=== PATIENT | male | born 1960 | race American Indian/Alaskan Native ===

== ENCOUNTER 2017-01-24 18:07 | Inpatient (IN) | payer OTHER ==
[2017-01-24] MEDS ORDERED: ATROVENT IH ONE (18:38)
[2017-01-24] MEDS ORDERED: PROVENTIL IH ONE (18:38)
[2017-01-24] MEDS ORDERED: MAGNESIUM SULFATE 2GM/50ML 2 GM/50 ML BAG IV ONE (18:38)
[2017-01-24] MEDS ORDERED: CARDENE 50 MG in NACL 0.9% 250ML 230 ML IV SCH (19:00)
[2017-01-24 19:07] LABS: Basophils % (Auto) 0.9 % (0.0-1.8); Eosinophils % (Auto) 12.7 % (0.0-4.3); Hematocrit 41.9 % (35.5-45.6); Hemoglobin 13.9 gm/dl (11.8-15.2); Mean Corpuscular HGB Conc 33 % (32-34); Mean Corpuscular Hemoglobin 33 pg (28-32); Mean Corpuscular Volume 98 fl (84-94); Platelet Count 289 K/mm3 (140-440); Red Blood Count 4.26 M/mm3 (3.65-5.03); Red Cell Distribution Width 12.7 % (13.2-15.2); White Blood Count 10.9 K/mm3 (4.5-11.0)
[2017-01-24 19:18] LABS: INR 0.95 (0.87-1.13)
[2017-01-24 19:19] LABS: Partial Thromboplastin Time 26.3 Sec. (24.2-36.6)
--- NOTE | 2017-01-24 19:23 | Emergency Department Report ---
ED Shortness of Breath HPI - General Chief Complaint: Dyspnea/Respdistress Stated Complaint: REBECCA Time Seen by Provider: 01/24/17 18:22 Source: EMS Mode of arrival: Stretcher Limitations: No Limitations - History of Present Illness Initial Comments: 56 year old male with no known past medical history presents to the hospital with shortness of breath since yesterday. Symptoms worsened today. Patient reports receiving a flu shot yesterday. Patient presents significantly hypertensive and to his knowledge she has no medical problems. She has not seen a primary care physician in greater than 10 years and has not has blood pressure checked in greater than 10 years. Does not smoke cigarettes. Denies a family history of heart disease, denies orthopnea, PND, calf tenderness, edema , cough, or fever. Albuterol nebulized treatments initiated in route. Patient also reports he has been taking Goody powders - Related Data Home Medications Medication Instructions Recorded Confirmed Last Taken No Known Home Medications [No 01/24/17 01/24/17 Unknown Reported Home Medications] Allergies Allergy/AdvReac Type Severity Reaction Status Date / Time No Known Allergies Allergy Unverified 03/14/13 08:53 ED Review of Systems ROS: Stated complaint: REBECCA Other details as noted in HPI Comment: All other systems reviewed and negative Other: Constitutional: No fevers chills Eyes: No eye pain visual changes ENT: No ear pain or throat pain Neck: Denies pain Respiratory: Denies cough Cardiovascular: Denies chest pain, palpitations, syncope GI: Denies abdominal pain, nausea, vomiting, diarrhea, Musculoskeletal: Denies back pain, joint swelling Skin: Denies rash, lesions, erythema Neurologic: Denies headache, numbness, weakness Psychiatric: Denies suicidal ideation, hallucinations ED Past Medical Hx - Past Medical History Previous Medical History?: No - Surgical History Past Surgical History?: No - Social History Smoking Status: Never Smoker Substance Use Type: None - Medications Home Medications: Home Medications Medication Instructions Recorded Confirmed Last Taken Type No Known Home Medications [No 01/24/17 01/24/17 Unknown History Reported Home Medications] ED Physical Exam - General Limitations: No Limitations - Other Other exam information: General: No limitations, patient is alert in no acute distress Head exam: Atraumatic, normocephalic Eyes exam: Normal appearance ENT: Moist mucous membrane, normal oropharynx Neck exam: Normal inspection, full range of motion, no meningismus nontender Respiratory exam: Mild tachypnea,ecchymoses, bilateral expiratory wheezing. Recently completed an albuterol treatment Cardiovascular: Tachycardic regular rhythm Abdomen: Soft, nondistended, and nontender, with normal bowel sounds, no rebound, or guarding Extremity: Full range of motion normal inspection no deformity, no calf tenderness or edema. Significant clubbing to the finger nails Back: Normal Inspection, full range of motion, no tenderness Neurologic: Alert, oriented x3, cranial nerves intact, no motor or sensory deficit Psychiatric: normal affect, normal mood Skin: Warm, dry, intact ED Course Vital Signs 01/24/17 01/24/17 01/24/17 18:10 18:13 18:20 Pulse Rate 100 H 112 H Respiratory 14 25 H Rate Blood Pressure 253/171 269/164 O2 Sat by Pulse 98 95 96 Oximetry 01/24/17 01/24/17 01/24/17 18:30 18:45 19:00 Pulse Rate 112 H 105 H 102 H Respiratory 21 17 21 Rate Blood Pressure 264/153 228/146 241/152 O2 Sat by Pulse 97 97 98 Oximetry 01/24/17 01/24/17 01/24/17 19:06 19:15 19:30 Pulse Rate 99 H 102 H Respiratory 22 22 22 Rate Blood Pressure 254/150 210/131 O2 Sat by Pulse 97 96 97 Oximetry 01/24/17 19:45 Pulse Rate 101 H Respiratory 21 Rate Blood Pressure 190/114 O2 Sat by Pulse 94 Oximetry ED Medical Decision Making - Lab Data Result diagrams: 01/24/17 18:55 01/24/17 18:55 Lab Results 01/24/17 01/24/17 01/24/17 Range/Units 18:55 18:55 18:55 WBC 10.9 (4.5-11.0) K/mm3 RBC 4.26 (3.65-5.03) M/mm3 Hgb 13.9 (11.8-15.2) gm/dl Hct 41.9 (35.5-45.6) % MCV 98 H (84-94) fl MCH 33 H (28-32) pg MCHC 33 (32-34) % RDW 12.7 L (13.2-15.2) % Plt Count 289 (140-440) K/mm3 Lymph % (Auto) 20.8 (13.4-35.0) % [place] % (Auto) 5.2 (0.0-7.3) % Eos % (Auto) 12.7 H (0.0-4.3) % Baso % (Auto) 0.9 (0.0-1.8) % Lymph # 2.3 (1.2-5.4) K/mm3 [place] # 0.6 (0.0-0.8) K/mm3 Eos # 1.4 H (0.0-0.4) K/mm3 Baso # 0.1 (0.0-0.1) K/mm3 Seg Neutrophils % 60.4 (40.0-70.0) % Seg Neutrophils # 6.6 (1.8-7.7) K/mm3 PT 13.2 (12.2-14.9) Sec. INR 0.95 (0.87-1.13) APTT 26.3 (24.2-36.6) Sec. Sodium 142 (137-145) mmol/L Potassium 3.7 (3.6-5.0) mmol/L Chloride 104.9 (98-107) mmol/L Carbon Dioxide 24 (22-30) mmol/L Anion Gap 17 mmol/L BUN 24 H (9-20) mg/dL Creatinine 1.7 H (0.8-1.5) mg/dL Estimated GFR 51 ml/min BUN/Creatinine Ratio 14 % Glucose 128 H (75-100) mg/dL Calcium 8.9 (8.4-10.2) mg/dL Total Bilirubin 0.20 (0.1-1.2) mg/dL AST 15 (5-40) units/L ALT 9 (7-56) units/L Alkaline Phosphatase 43 (35-129) units/L Total Creatine Kinase (55-170) units/L CK-MB (CK-2) (0.0-4.0) ng/mL CK-MB (CK-2) Rel Index (0-4) Troponin T < 0.010 (0.00-0.029) ng/mL NT-Pro-B Natriuret Pep (0-900) pg/mL Total Protein 7.6 (6.3-8.2) g/dL Albumin 4.0 (3.9-5) g/dL Albumin/Globulin Ratio 1.1 % Triglycerides (2-149) mg/dL Cholesterol (50-199) mg/dL LDL Cholesterol Direct (50-130) mg/dL HDL Cholesterol (40-59) mg/dL Cholesterol/HDL Ratio % 01/24/17 01/24/17 Range/Units 18:55 18:55 WBC (4.5-11.0) K/mm3 RBC (3.65-5.03) M/mm3 Hgb (11.8-15.2) gm/dl Hct (35.5-45.6) % MCV (84-94) fl MCH (28-32) pg MCHC (32-34) % RDW (13.2-15.2) % Plt Count (140-440) K/mm3 Lymph % (Auto) (13.4-35.0) % [place] % (Auto) (0.0-7.3) % Eos % (Auto) (0.0-4.3) % Baso % (Auto) (0.0-1.8) % Lymph # (1.2-5.4) K/mm3 [place] # (0.0-0.8) K/mm3 Eos # (0.0-0.4) K/mm3 Baso # (0.0-0.1) K/mm3 Seg Neutrophils % (40.0-70.0) % Seg Neutrophils # (1.8-7.7) K/mm3 PT (12.2-14.9) Sec. INR (0.87-1.13) APTT (24.2-36.6) Sec. Sodium (137-145) mmol/L Potassium (3.6-5.0) mmol/L Chloride (98-107) mmol/L Carbon Dioxide (22-30) mmol/L Anion Gap mmol/L BUN (9-20) mg/dL Creatinine (0.8-1.5) mg/dL Estimated GFR ml/min BUN/Creatinine Ratio % Glucose (75-100) mg/dL Calcium (8.4-10.2) mg/dL Total Bilirubin (0.1-1.2) mg/dL AST (5-40) units/L ALT (7-56) units/L Alkaline Phosphatase (35-129) units/L Total Creatine Kinase 195 H (55-170) units/L CK-MB (CK-2) 5.1 H (0.0-4.0) ng/mL CK-MB (CK-2) Rel Index 2.6 (0-4) Troponin T (0.00-0.029) ng/mL NT-Pro-B Natriuret Pep 888.5 (0-900) pg/mL Total Protein (6.3-8.2) g/dL Albumin (3.9-5) g/dL Albumin/Globulin Ratio % Triglycerides 260 H (2-149) mg/dL Cholesterol 243 H (50-199) mg/dL LDL Cholesterol Direct 153 H (50-130) mg/dL HDL Cholesterol 38 L (40-59) mg/dL Cholesterol/HDL Ratio 6.39 % - EKG Data -: EKG Interpreted by Me (sinus tach 109 lateral T inversions no ST elevation MD ) - EKG Data When compared to previous EKG there are: previous EKG unavailable - Radiology Data Radiology results: image reviewed (chest x-ray: No acute findings) - Medical Decision Making Patient is treated with Solu-Medrol, magnesium, and nebulized treatments for wheezing. Cardene drip initiated for hypertension. No MD at this time but abnl ekg We'll admit to the ED for further treatment - Differential Diagnosis bronchitis, asthma, COPD, CHF, hypertensive emergency Critical Care Time: No Critical care attestation.: If time is entered above; I have spent that time in minutes in the direct care of this critically ill patient, excluding procedure time. ED Disposition Clinical Impression: Wheezing, Hypertensive emergency, Renal insufficiency, Hyperlipidemia, Clubbing of nails Disposition: OP ADMIT IP TO THIS HOSP Is pt being admited?: Yes Does the pt Need Aspirin: Yes Condition: Stable Time of Disposition: 19:58 (hospitalist)
[2017-01-24 19:30] LABS: Creatine Kinase MB 5.1 ng/mL (0.0-4.0)
[2017-01-24 19:33] LABS: Alanine Aminotransferase 9 units/L (7-56); Albumin/Globulin Ratio 1.1 %; Alkaline Phosphatase 43 units/L (35-129); Anion Gap 17 mmol/L; BUN/Creatinine Ratio 14; Blood Urea Nitrogen 24 mg/dL (9-20); Calcium 8.9 mg/dL (8.4-10.2); Carbon Dioxide 24 mmol/L (22-30); Chloride 104.9 mmol/L (98-107); Glucose 128 mg/dL (75-100); Potassium 3.7 mmol/L (3.6-5.0); Sodium 142 mmol/L (137-145); Total Protein 7.6 g/dL (6.3-8.2)
[2017-01-24] MEDS ORDERED: ASPIRIN PO ONE (20:00)
--- NOTE | 2017-01-24 22:00 | History and Physical Report ---
History of Present Illness Date of examination: 01/24/17 Date of admission: 01/24/17 20:00 History of present illness: 56-year-old man with no medical problems comes emergency room because he developed shortness of breath that started yesterday. He complains of a cough but unable to produce any phlegm. He feels very weak, is very diaphoretic when he gets shortness of breath at home Review Of Systems: Constitutional: no weight loss Ears, eyes, nose, mouth and throat: no nasal congestion, no nasal discharge, no sinus pressure, blurry vision, diplopia Neck: No neck pain or rigidity. Cardiovascular: chest pain, orthopnea, palpitations Respiratory: No shortness of breath, cough Gastrointestinal: abdominal pain, hematochezia Genitourinary : no dysuria, frequency , hematuria Musculoskeletal: no muscle ache Integumentary: no rash, no pruritis Neurological: no parathesias, focal weakness Endocrine: no cold or heat intolerance, no polyuria or polydipsia Hematologic/Lymphatic: no easy bruising, no easy bleeding, no gland swelling Allergic/Immunologic: no urticaria, no angioedema. PAST SURGICAL HISTORY: None FAMILY HISTORY: None SOCIAL HISTORY: None Medications and Allergies Allergies Allergy/AdvReac Type Severity Reaction Status Date / Time No Known Allergies Allergy Unverified 03/14/13 08:53 Home Medications Medication Instructions Recorded Confirmed Last Taken Type No Known Home Medications [No 01/24/17 01/24/17 Unknown History Reported Home Medications] Active Meds: Active Medications Nicardipine HCl 50 mg/ Sodium (Chloride) 250 mls @ 25 mls/hr IV TITR YONATHAN; 5 MG/ HR PRN Reason: Protocol Last Titration: 01/24/17 21:15 Dose: 3 mg/hr, 15 mls/hr Exam - Physical Exam Narrative exam: Gen. appearance: Patient lying in bed in no acute distress HEENT: Normocephalic/atraumatic, pupils equal round reactive to light, extra alkaline movement intact, no scleral icterus, no JVD or thyromegaly or nodule, neck is supple, mucous membrane moist, no erythema or exudate Heart: S1-S2, regular rate and rhythm Lungs: Clear to auscultation bilateral breathing comfortable Abdomen: Positive bowel sounds, nontender, nondistended, no organomegaly Extremities: No edema, cyanosis, clubbing Neuro:: Oriented 3 , cranial nerves II-12 intact, speech, motor intact Skin: No rash, nodules, warm dry - Constitutional Vitals: Temp Pulse Resp BP Pulse Ox 126 H 13 159/88 96 01/24/17 21:45 01/24/17 21:45 01/24/17 21:45 01/24/17 21:45 Results - Labs CBC & Chem 7: 01/25/17 02:44 01/26/17 10:22 - Imaging and Cardiology EKG: image reviewed Chest x-ray: image reviewed Assessment and Plan Assessment HypertensiVE urgency, malignant Shortness of breath probably secondary to hypertension uncontrolled Kidney disease, most likely chronic Plan Admit to medicine Switch Cardene drip to labetalol drip to control heart rate Obtain CAT scan of the chest, check cardiac enzymes, d-dimer Gentle IV fluids, DT prophylaxis Consult critical care
--- NOTE | 2017-01-24 22:26 | History and Physical Report ---
History of Present Illness Date of admission: 01/24/17 20:00 Medications and Allergies Allergies Allergy/AdvReac Type Severity Reaction Status Date / Time No Known Allergies Allergy Unverified 03/14/13 08:53 Home Medications Medication Instructions Recorded Confirmed Last Taken Type No Known Home Medications [No 01/24/17 01/24/17 Unknown History Reported Home Medications] Active Meds: Active Medications Enoxaparin Sodium (Lovenox) 30 mg SUB-Q QDAY YONATHAN Nicardipine HCl 50 mg/ Sodium (Chloride) 250 mls @ 25 mls/hr IV TITR YONATHAN; 5 MG/ HR PRN Reason: Protocol Last Titration: 01/24/17 21:45 Dose: 2.5 mg/hr, 12.5 mls/hr Exam - Constitutional Vitals: Temp Pulse Resp BP Pulse Ox 120 H 22 144/72 96 01/24/17 22:00 01/24/17 22:00 01/24/17 22:00 01/24/17 22:00 Results - Labs CBC & Chem 7: 01/24/17 18:55 01/24/17 18:55
--- NOTE | 2017-01-24 23:00 | Cat Scan Report ---
FINAL REPORT EXAM: CT CHEST WO CON HISTORY: sob TECHNIQUE: Noncontrast serial axial images through the chest with coronal and sagittal reconstruction PRIORS: None. FINDINGS: The study is limited by lack of intravenous contrast. There is motion artifact. No focal consolidations are seen in the lungs and there are no pleural effusions. There is mild atelectasis in the posterior aspect of the right lung base. There is a bleb in the medial aspect of the superior segment of the right lower lobe. No abnormal mass or adenopathy is identified. The heart measures 12 centimeters in length. Asymmetric atrophy of the right kidney is noted. There double J ureteral stent on the right which is incompletely evaluated this study. There are degenerative changes in the spine. IMPRESSION: 1. Mild atelectasis in the right lung base. 2. No focal infiltrate or pleural effusion is seen.
[2017-01-24] MEDS ORDERED: ASPIRIN ONE (23:04)
[2017-01-24] MEDS ORDERED: TYLENOL PO PRN (23:06)
[2017-01-24] MEDS ORDERED: ZOFRAN IV PRN (23:06)
[2017-01-24] MEDS ORDERED: DULCOLAX PR PRN (23:06)
[2017-01-24] MEDS ORDERED: NACL 0.45% 1000 ML 1,000 ML IV SCH (23:45)
[2017-01-24] MEDS: NORMODYNE 200 MG in D5W 160 ML IV SCH (23:45)
--- NOTE | 2017-01-24 23:51 | Cat Scan Report ---
FINAL REPORT EXAM: CT ABDOMEN PELVIS WO CON HISTORY: sob TECHNIQUE: Serial axial images through the abdomen and pelvis with coronal and sagittal reconstruction. PRIORS: CT abdomen pelvis from 09/30/2012 FINDINGS: There is respiratory motion artifact noted in the lung bases. There is mild atelectasis in dependent portion of the right lung base. No focal hepatic lesion is identified. Cholelithiasis is noted. Pancreas appears normal. Spleen appears normal. Adrenal glands appear normal. Left kidney appears normal. There atrophy in the right kidney. There is a double-J ureteral stent on the right side. Bladder is decompressed. The bladder wall appears thickened. No free fluid. Appendix appears normal. No gross bowel abnormality is identified. There are degenerative changes in the spine. IMPRESSION: 1. Cholelithiasis. 2. Double-J ureteral stent is noted on the right side. 3. The wall the bladder appears slightly thickened. This may be exaggerated by nondistention. Possibility of cystitis is not excluded.
[2017-01-25 00:09] LABS: Creatine Kinase MB 5.5 ng/mL (0.0-4.0)
[2017-01-25 00:10] LABS: Creatine Kinase 165 units/L (55-170)
[2017-01-25 03:08] LABS: Hematocrit 38.9 % (35.5-45.6); Hemoglobin 13.5 gm/dl (11.8-15.2); Mean Corpuscular HGB Conc 35 % (32-34); Mean Corpuscular Hemoglobin 34 pg (28-32); Mean Corpuscular Volume 98 fl (84-94); Platelet Count 259 K/mm3 (140-440); Red Blood Count 3.97 M/mm3 (3.65-5.03); Red Cell Distribution Width 13.2 % (13.2-15.2); White Blood Count 9.2 K/mm3 (4.5-11.0)
[2017-01-25] MEDS: NORMODYNE 200 MG in D5W 160 ML IV SCH (03:25)
[2017-01-25 03:26] LABS: Calcium 9.1 mg/dL (8.4-10.2); Chloride 102.1 mmol/L (98-107); Creatine Kinase MB 7.5 ng/mL (0.0-4.0); Potassium 4.3 mmol/L (3.6-5.0)
[2017-01-25 03:28] LABS: Creatine Kinase 152 units/L (55-170)
[2017-01-25 06:48] LABS: Anisocytosis Few; Basophils % (Manual) 0 % (0.0-1.8); Blastocytes % (Manual) 0 %; Eosinophils % (Manual) 0 % (0.0-4.3)
[2017-01-25 06:49] LABS: Diff Status Complete
--- NOTE | 2017-01-25 08:01 | XRay Report ---
AP CHEST: HISTORY: chest pain, shortness of breath AP view of the chest demonstrates a normal mediastinal and cardiac contour with clear lungs and normal bony and soft tissue structures. IMPRESSION: No acute cardiopulmonary process.
[2017-01-25] MEDS ORDERED: APRESOLINE IV STA (09:47)
--- NOTE | 2017-01-25 09:47 | Consultation ---
History of Present Illness Consult date: 01/25/17 Requesting physician: HERBER SAUL Reason for consult: other (Hypertensive Emergency) History of present illness: PULMONARY / CCM CONSULT NOTE (Full dictation # [id number]) Please see dictated notes for full details Medications and Allergies Allergies Allergy/AdvReac Type Severity Reaction Status Date / Time No Known Allergies Allergy Unverified 03/14/13 08:53 Home Medications Medication Instructions Recorded Confirmed Last Taken Type No Known Home Medications [No 01/24/17 01/24/17 Unknown History Reported Home Medications] Active Meds: Active Medications Acetaminophen (Tylenol) 650 mg PO Q4H PRN PRN Reason: Pain MILD(1-3)/Fever >100.5/AVALOS Bisacodyl (Dulcolax) 10 mg CA QDAY PRN PRN Reason: Constipation unrelieved by MOM Enoxaparin Sodium (Lovenox) 30 mg SUB-Q QDAY YONATHAN Nicardipine HCl 50 mg/ Sodium (Chloride) 250 mls @ 25 mls/hr IV TITR YONATHAN; 5 MG/ HR PRN Reason: Protocol Last Titration: 01/24/17 21:45 Dose: 2.5 mg/hr, 12.5 mls/hr Sodium Chloride (Nacl 0.45% 1000 Ml) 1,000 mls @ 75 mls/hr IV DIRECT YONATHAN Last Admin: 01/24/17 23:45 Dose: 75 mls/hr Labetalol HCl 200 mg/ Dextrose 200 mls @ 120 mls/hr IV TITR YONATHAN; 2 MG/MIN PRN Reason: Protocol Last Admin: 01/25/17 03:25 Dose: 1 mg/min, 60 mls/hr Magnesium Hydroxide (Milk Of Magnesia) 30 ml PO Q4H PRN PRN Reason: Constipation Ondansetron HCl (Zofran) 4 mg IV Q8H PRN PRN Reason: N/V unrelieved by Reglan Physical Examination Vital signs: Vital Signs Pulse Ox 98 01/24/17 18:10 Results - Laboratory Findings CBC and BMP: 01/25/17 02:44 01/25/17 02:44 PT/INR, D-dimer PT 13.2 Sec. (12.2-14.9) 01/24/17 18:55 INR 0.95 (0.87-1.13) 01/24/17 18:55 D-Dimer 167.89 ng/mlDDU (0-234) 01/24/17 18:55 Abnormal lab findings: Abnormal Labs 01/24/17 01/25/17 01/25/17 23:35 02:44 02:44 MCV 98 H MCH 34 H MCHC 35 H Seg Neuts % (Manual) 86.0 H Lymphocytes % (Manual) 7.0 L Seg Neutrophils # Man 7.9 H Lymphocytes # (Manual) 0.6 L BUN Creatinine Glucose CK-MB (CK-2) 5.5 H 7.5 H CK-MB (CK-2) Rel Index 4.9 H 01/25/17 02:44 MCV MCH MCHC Seg Neuts % (Manual) Lymphocytes % (Manual) Seg Neutrophils # Man Lymphocytes # (Manual) BUN 26 H Creatinine 1.7 H Glucose 283 H CK-MB (CK-2) CK-MB (CK-2) Rel Index
[2017-01-25] MEDS ORDERED: LOVENOX SUB-Q SCH (10:00)
[2017-01-25] MEDS ORDERED: APRESOLINE ONE (10:04)
[2017-01-25] MEDS: CATAPRES PO SCH ×3 (10:14→18:30)
[2017-01-25] MEDS ORDERED: APRESOLINE IV SCH (11:00)
--- NOTE | 2017-01-25 16:08 | Cat Scan Report ---
CT scan without contrast: History shoulder surgery weakness, CVA. Findings: Ventricles are normal in size and midline in location. Very faint area of low attenuation measuring 4 mm in diameter the right basal ganglia. Ventricles are midline in location. No extra-axial fluid collection. Normal brainstem and cerebellum. No hemorrhage. Normal sinuses and mastoid air cells. Impression: Faint area of low attenuation right basal ganglia may be related to acute ischemia. If clinically indicated MRI scan may be advised. No evidence of hemorrhage.
[2017-01-25] MEDS: APRESOLINE IV SCH ×3 (16:49→22:49)
--- NOTE | 2017-01-25 17:17 | Progress Note ---
Assessment and Plan Assessment and plan: Hypertensive emergency. Initial BP [id number]. Patient was started on Labetalol drip which is now off. Start Norvasc and Clonidine oral since BP improved. Cardiology consulted. Shortness of breath due to hypertensive urgency , improving Acute kidney injury due to ATN. Creatinine 1.7 today. Will give iv fluids and repeat BMP in am. Avoid nephrotox Medical noncompliance. Patient has not been to a Doctor in more than 10 yrs Dyslipidemia with elevated LDL and trig. Start Zocor 20mg po daily DVT prophylaxis with Lovenox. Full code status History Interval history: shortness of breath, no fever Hospitalist Physical - Physical exam Narrative exam: Gen Appearance: Not in acute distress, HEENT: normocephalic, atraumatic Neck: supple, no JVD Lungs: Clear to auscultation, bilaterally, no rales, no wheezing Heart: S1 and S2 regular, no murmurs, rubs or gallop Abdomen: Soft , non tender, non distended, normal bowel sounds Extremity: No edema, No clubbing or cyanosis Neuro : Awake,alert, oriented x 3, moves all extremities - Constitutional Vitals: Temp Pulse Resp BP Pulse Ox 97.8 F 89 20 133/76 98 01/25/17 00:00 01/25/17 16:49 01/25/17 16:00 01/25/17 16:49 01/25/17 16:00 Results - Labs CBC & Chem 7: 01/25/17 02:44 01/26/17 10:22 Labs: Laboratory Last Values WBC 9.2 K/mm3 (4.5-11.0) 01/25/17 02:44 RBC 3.97 M/mm3 (3.65-5.03) 01/25/17 02:44 Hgb 13.5 gm/dl (11.8-15.2) 01/25/17 02:44 Hct 38.9 % (35.5-45.6) 01/25/17 02:44 MCV 98 fl (84-94) H 01/25/17 02:44 MCH 34 pg (28-32) H 01/25/17 02:44 MCHC 35 % (32-34) H 01/25/17 02:44 RDW 13.2 % (13.2-15.2) 01/25/17 02:44 Plt Count 259 K/mm3 (140-440) 01/25/17 02:44 Lymph % (Auto) 20.8 % (13.4-35.0) 01/24/17 18:55 [place] % (Auto) 5.2 % (0.0-7.3) 01/24/17 18:55 Eos % (Auto) 12.7 % (0.0-4.3) H 01/24/17 18:55 Baso % (Auto) 0.9 % (0.0-1.8) 01/24/17 18:55 Lymph # 2.3 K/mm3 (1.2-5.4) 01/24/17 18:55 [place] # 0.6 K/mm3 (0.0-0.8) 01/24/17 18:55 Eos # 1.4 K/mm3 (0.0-0.4) H 01/24/17 18:55 Baso # 0.1 K/mm3 (0.0-0.1) 01/24/17 18:55 Add Manual Diff Complete 01/25/17 02:44 Total Counted 100 01/25/17 02:44 Seg Neutrophils % Art Therapy Certified Supervisor 01/25/17 02:44 Seg Neuts % (Manual) 86.0 % (40.0-70.0) H 01/25/17 02:44 Band Neutrophils % 4.0 % 01/25/17 02:44 Lymphocytes % (Manual) 7.0 % (13.4-35.0) L 01/25/17 02:44 Reactive Lymphs % (Man) 0 % 01/25/17 02:44 Monocytes % (Manual) 3.0 % (0.0-7.3) 01/25/17 02:44 Eosinophils % (Manual) 0 % (0.0-4.3) 01/25/17 02:44 Basophils % (Manual) 0 % (0.0-1.8) 01/25/17 02:44 Metamyelocytes % 0 % 01/25/17 02:44 Myelocytes % 0 % 01/25/17 02:44 Promyelocytes % 0 % 01/25/17 02:44 Blast Cells % 0 % 01/25/17 02:44 Nucleated RBC % Not Reportable 01/25/17 02:44 Seg Neutrophils # 6.6 K/mm3 (1.8-7.7) 01/24/17 18:55 Seg Neutrophils # Man 7.9 K/mm3 (1.8-7.7) H 01/25/17 02:44 Band Neutrophils # 0.4 K/mm3 01/25/17 02:44 Lymphocytes # (Manual) 0.6 K/mm3 (1.2-5.4) L 01/25/17 02:44 Abs React Lymphs (Man) 0.0 K/mm3 01/25/17 02:44 Monocytes # (Manual) 0.3 K/mm3 (0.0-0.8) 01/25/17 02:44 Eosinophils # (Manual) 0.0 K/mm3 (0.0-0.4) 01/25/17 02:44 Basophils # (Manual) 0.0 K/mm3 (0.0-0.1) 01/25/17 02:44 Metamyelocytes # 0.0 K/mm3 01/25/17 02:44 Myelocytes # 0.0 K/mm3 01/25/17 02:44 Promyelocytes # 0.0 K/mm3 01/25/17 02:44 Blast Cells # 0.0 K/mm3 01/25/17 02:44 WBC Morphology Not Reportable 01/25/17 02:44 Hypersegmented Neuts Not Reportable 01/25/17 02:44 Hyposegmented Neuts Not Reportable 01/25/17 02:44 Hypogranular Neuts Not Reportable 01/25/17 02:44 Smudge Cells Not Reportable 01/25/17 02:44 Toxic Granulation Not Reportable 01/25/17 02:44 Toxic Vacuolation Not Reportable 01/25/17 02:44 Dohle Bodies Not Reportable 01/25/17 02:44 Pelger-Huet Anomaly Not Reportable 01/25/17 02:44 Destini Rods Not Reportable 01/25/17 02:44 Platelet Estimate Appears normal 01/25/17 02:44 Clumped Platelets Not Reportable 01/25/17 02:44 Plt Clumps, EDTA Not Reportable 01/25/17 02:44 Large Platelets Not Reportable 01/25/17 02:44 Giant Platelets Not Reportable 01/25/17 02:44 Platelet Satelliting Not Reportable 01/25/17 02:44 Plt Morphology Comment Not Reportable 01/25/17 02:44 RBC Morphology Not Reportable 01/25/17 02:44 Dimorphic RBCs Not Reportable 01/25/17 02:44 Polychromasia Not Reportable 01/25/17 02:44 Hypochromasia Not Reportable 01/25/17 02:44 Poikilocytosis Not Reportable 01/25/17 02:44 Anisocytosis Few 01/25/17 02:44 Microcytosis Not Reportable 01/25/17 02:44 Macrocytosis Not Reportable 01/25/17 02:44 Spherocytes Not Reportable 01/25/17 02:44 Pappenheimer Bodies Not Reportable 01/25/17 02:44 Sickle Cells Not Reportable 01/25/17 02:44 Target Cells Not Reportable 01/25/17 02:44 Tear Drop Cells Not Reportable 01/25/17 02:44 Ovalocytes Not Reportable 01/25/17 02:44 Helmet Cells Not Reportable 01/25/17 02:44 [place] Bodies Not Reportable 01/25/17 02:44 [place] Rings Not Reportable 01/25/17 02:44 [place] Cells Not Reportable 01/25/17 02:44 Bite Cells Not Reportable 01/25/17 02:44 Crenated Cell Not Reportable 01/25/17 02:44 Elliptocytes Not Reportable 01/25/17 02:44 Acanthocytes (Spur) Not Reportable 01/25/17 02:44 Rouleaux Not Reportable 01/25/17 02:44 Hemoglobin C Crystals Not Reportable 01/25/17 02:44 Schistocytes Not Reportable 01/25/17 02:44 Malaria parasites Not Reportable 01/25/17 02:44 Denzel Bodies Not Reportable 01/25/17 02:44 Hem Pathologist Commnt No 01/25/17 02:44 PT 13.2 Sec. (12.2-14.9) 01/24/17 18:55 INR 0.95 (0.87-1.13) 01/24/17 18:55 APTT 26.3 Sec. (24.2-36.6) 01/24/17 18:55 D-Dimer 167.89 ng/mlDDU (0-234) 01/24/17 18:55 Sodium 141 mmol/L (137-145) 01/25/17 02:44 Potassium 4.3 mmol/L (3.6-5.0) 01/25/17 02:44 Chloride 102.1 mmol/L (98-107) 01/25/17 02:44 Carbon Dioxide 22 mmol/L (22-30) 01/25/17 02:44 Anion Gap 21 mmol/L 01/25/17 02:44 BUN 26 mg/dL (9-20) H 01/25/17 02:44 Creatinine 1.7 mg/dL (0.8-1.5) H 01/25/17 02:44 Estimated GFR 51 ml/min 01/25/17 02:44 BUN/Creatinine Ratio 15 % 01/25/17 02:44 Glucose 283 mg/dL (75-100) H 01/25/17 02:44 Calcium 9.1 mg/dL (8.4-10.2) 01/25/17 02:44 Total Bilirubin 0.20 mg/dL (0.1-1.2) 01/24/17 18:55 AST 15 units/L (5-40) 01/24/17 18:55 ALT 9 units/L (7-56) 01/24/17 18:55 Alkaline Phosphatase 43 units/L (35-129) 01/24/17 18:55 Total Creatine Kinase 152 units/L (55-170) 01/25/17 02:44 CK-MB (CK-2) 7.5 ng/mL (0.0-4.0) H 01/25/17 02:44 CK-MB (CK-2) Rel Index 4.9 (0-4) H 01/25/17 02:44 Troponin T < 0.010 ng/mL (0.00-0.029) 01/25/17 02:44 NT-Pro-B Natriuret Pep 888.5 pg/mL (0-900) 01/24/17 18:55 Total Protein 7.6 g/dL (6.3-8.2) 01/24/17 18:55 Albumin 4.0 g/dL (3.9-5) 01/24/17 18:55 Albumin/Globulin Ratio 1.1 % 01/24/17 18:55 Triglycerides 260 mg/dL (2-149) H 01/24/17 18:55 Cholesterol 243 mg/dL (50-199) H 01/24/17 18:55 LDL Cholesterol Direct 153 mg/dL (50-130) H 01/24/17 18:55 HDL Cholesterol 38 mg/dL (40-59) L 01/24/17 18:55 Cholesterol/HDL Ratio 6.39 % 01/24/17 18:55
[2017-01-25] MEDS: NORVASC PO SCH (18:29)
--- NOTE | 2017-01-26 04:49 | Consultation ---
PULMONARY CRITICAL CARE CONSULTATION NOTE DATE OF CONSULTATION: 01/25/2017 CONSULTING PHYSICIAN: Consuelo Cox MD. REASON FOR CONSULTATION: Hypertensive emergency. CHIEF COMPLAINT AND HISTORY OF PRESENT ILLNESS: The patient is a 56-year-old Citizen Of [place] male. Past medical history, according to him, he denies any. Came into the Emergency Room yesterday after he suddenly developed shortness of breath, sweating and some chest pain and congestion. He was weak. He was diaphoretic. He was evaluated. He was found to be significantly hypertensive and admitted with a diagnosis of malignant hypertension, started on IV I believe Cardene drip initially, but was tachycardic and switched to labetalol. We are asked to admit to ICU for management of hypertensive emergency. When I stopped by to see him in the Emergency Room, he was feeling better, off the IV drip. I had scheduled him on hydralazine earlier. He, however, had trouble conversing well and well and trouble moving really his left side. When questioned, diligently he mentioned that a few days ago, he had lost movement to his left side and really had not been able to leave the house as a result of that. He denied any prior knowledge of hypertension. Denied alcohol, tobacco abuse or illicit drug use or abuse . That is as much of the history of presentation as I have. PAST MEDICAL HISTORY: Denied any. PAST SURGICAL HISTORY: Denied. MEDICATIONS: He was on at the time I stopped by to see him had been reviewed. Pertinent medications included Norvasc 5 mg p.o. daily, clonidine 0.1 mg p.o. every 8 hours, hydralazine 10 mg IV scheduled with hold parameters and p.r.n. Zoan. ALLERGIES: Denies. DIET: Well-built gentleman. Denies weight loss or gain in the preceding few weeks to months. FAMILY AND SOCIAL HISTORY: Lives in the community. No alcohol, tobacco or illicit drug use or abuse. Family history is otherwise noncontributory. REVIEW OF SYSTEMS: Denies loss of consciousness. No new onset seizures. He has new onset left-sided weakness. No gross hematochezia or melena. Complete 10-system review of systems is obtained. Pertinent positives and/or negatives as in the body of history above, otherwise, noncontributory. PHYSICAL EXAMINATION: VITAL SIGNS: At presentation, review of vital signs shows that he was afebrile, temperature was 98.2, pulse 105, respiratory rate 17, blood pressure 201/143, oxygen sats 96%, inspired oxygen concentration was not recorded. HEAD, EYES, EARS, NOSE AND THROAT: Pupils are equal, round, reactive to light and accommodation. Extraocular muscle movements were intact. Oropharynx was Mallampati 3. No oropharyngeal pallor. Tongue protrusion stayed in the midline. Oropharynx was moist. No palpable lymph nodes in the supraclavicular or submandibular lymph node chains. No jugular venous distention. LUNGS: Clear bilaterally. Normal respiratory effort. HEART: Heart sounds 1 and 2 are heard. Regular rate and rhythm. No rubs or murmurs. ABDOMEN: Soft, full. Bowel sounds positive. Nontender. EXTREMITIES: Without digital clubbing, cyanosis or pedal edema. NEUROLOGIC: He had left-sided weakness. Power about 4/5 on the left side. It was normal on the right side. No tremors or fasciculations. PSYCHIATRIC: Affect was anxious really. Insight was appropriate, but cognition appeared mildly delayed. LABORATORY DATA: Has been reviewed. White cell count 10,900 at presentation, hemoglobin 13.9, hematocrit 41.9, platelet count 289. INR was 0.95. D-dimer within normal limits. Serum sodium 142, potassium 3.7, chloride 105, bicarb 24, BUN 24, creatinine 1.7, glucose 128. Troponin within normal limits. BNP within normal limits. LDL cholesterol was elevated at 153. No microbiology studies. Chest x-ray has been reviewed. I have reviewed the chest x-ray. Borderline cardiomegaly, otherwise, no acute process. CT scans were done of the chest, abdomen and pelvis. I have reviewed the radiologist's interpretation on those studies. Mild atelectasis in the base. The CT of the abdomen and pelvis showed cholelithiasis, but also double-J ureteral stent noted on the right side. He absolutely denies any prior intervention surgically. ASSESSMENT AND PLAN: We have a middle-aged gentleman with really an acute cerebrovascular accident, if you ask me, most likely related to uncontrolled hypertension and hyperlipidemia. I will order a stat CT scan of his head and we will continue to follow evaluation from that point. Neurology consultation will be placed and we will follow their recommendations. I should say blood control is improving. He will be placed on gastrointestinal and deep venous thrombosis prophylaxis. Influenza and pneumonia vaccination will be per protocol. He will benefit from Nephrology evaluation. Thank you very much for the consult. We will follow along and make further recommendations as picture progresses/becomes clearer. JOB# [id number] ASHWIN/KAREN
[2017-01-26] MEDS: CATAPRES PO SCH ×3 (05:51→18:05)
[2017-01-26] MEDS: APRESOLINE IV SCH ×5 (05:52→22:56)
--- NOTE | 2017-01-26 09:34 | Magnetic Resonance Report ---
MRI OF THE BRAIN WITHOUT CONTRAST: HISTORY: CVA PROCEDURE: Multiplanar, multisequence MR imaging of the brain without IV contrast was performed. FINDINGS: CT head without contrast performed 01/25/17 was reviewed. MRI demonstrates 3 small, subtle areas of diffusion restriction. A subtle 1 cm area of diffusion restriction is identified in the lateral right thalamus. This appears to involve the posterior limb of the internal capsule on the right side. There are 2 tiny foci of diffusion restriction in the left parietal white matter measuring less than 5 mm. There is no evidence for hemorrhage, mass or extra-axial fluid collection. Moderate nonspecific chronic white matter changes are identified bilaterally. Chronic subcentimeter infarcts are identified in the bilateral cerebellar hemispheres which are best appreciated on axial flare image 9. No large chronic infarct. The midline structures are central. The basal cisterns are patent. Normal ventricular size. The orbital cavities and sella turcica demonstrate no abnormality. The visualized paranasal sinuses and mastoid air cells are well aerated. IMPRESSION: 3 subtle foci of diffusion restriction are identified as outlined above consistent with subacute ischemic infarct. No evidence for hemorrhage or mass effect. Chronic focal infarcts in both cerebellar hemispheres. Moderate to nonspecific chronic white matter changes which are most likely related to chronic microvascular ischemic disease.
[2017-01-26] MEDS: NORVASC PO SCH (10:43)
[2017-01-26] MEDS: LOVENOX SUB-Q SCH (10:45)
[2017-01-26] MEDS ORDERED: ASPIRIN PO STA (10:52)
--- NOTE | 2017-01-26 11:09 | Consultation ---
History of Present Illness - Reason for Consult Consult date: 01/26/17 stroke - History of Present Illness personally reviewed the MRI of the brain and there are several small lacunar infarcts will rec carotid u/s Medications and Allergies Allergies Allergy/AdvReac Type Severity Reaction Status Date / Time No Known Allergies Allergy Unverified 03/14/13 08:53 Home Medications Medication Instructions Recorded Confirmed Last Taken Type No Known Home Medications [No 01/24/17 01/24/17 Unknown History Reported Home Medications] Active Meds: Active Medications Acetaminophen (Tylenol) 650 mg PO Q4H PRN PRN Reason: Pain MILD(1-3)/Fever >100.5/AVALOS Last Admin: 01/25/17 13:45 Dose: 650 mg Amlodipine Besylate (Norvasc) 5 mg PO QDAY [facility] Last Admin: 01/26/17 10:43 Dose: 5 mg Bisacodyl (Dulcolax) 10 mg [place] QDAY PRN PRN Reason: Constipation unrelieved by MOM Clonidine HCl (Catapres) 0.1 mg PO Q8H [facility] Last Admin: 01/26/17 10:44 Dose: 0.1 mg Enoxaparin Sodium (Lovenox) 40 mg SUB-Q QDAY@1000 YONATHAN Last Admin: 01/26/17 10:45 Dose: 40 mg Hydralazine HCl (Apresoline) 10 mg IV Q4H [facility] Last Admin: 01/26/17 05:52 Dose: Not Given Magnesium Hydroxide (Milk Of Magnesia) 30 ml PO Q4H PRN PRN Reason: Constipation Ondansetron HCl (Zofran) 4 mg IV Q8H PRN PRN Reason: N/V unrelieved by Reglan Last Admin: 01/25/17 22:41 Dose: 4 mg Exam - Constitutional Vitals: Temp Pulse Resp BP Pulse Ox 98.3 F 84 18 156/93 96 01/26/17 08:00 01/26/17 10:44 01/26/17 08:00 01/26/17 10:44 01/26/17 10:00 Results - Labs CBC & Chem 7: 01/25/17 02:44 01/25/17 02:44
[2017-01-26 11:20] LABS: Calcium 9.2 mg/dL (8.4-10.2); Potassium 3.9 mmol/L (3.6-5.0)
--- NOTE | 2017-01-26 11:40 | Consultation ---
History of Present Illness - Reason for Consult Consult date: 01/26/17 stroke - History of Present Illness weent over the change in symptoms based on described attack sounds based on hx like this was aphasia / a/w dysarthria further stroke work up is recommended orders Medications and Allergies Allergies Allergy/AdvReac Type Severity Reaction Status Date / Time No Known Allergies Allergy Unverified 03/14/13 08:53 Home Medications Medication Instructions Recorded Confirmed Last Taken Type No Known Home Medications [No 01/24/17 01/24/17 Unknown History Reported Home Medications] Active Meds: Active Medications Acetaminophen (Tylenol) 650 mg PO Q4H PRN PRN Reason: Pain MILD(1-3)/Fever >100.5/AVALOS Last Admin: 01/25/17 13:45 Dose: 650 mg Amlodipine Besylate (Norvasc) 5 mg PO QDAY [facility] Last Admin: 01/26/17 10:43 Dose: 5 mg Bisacodyl (Dulcolax) 10 mg [place] QDAY PRN PRN Reason: Constipation unrelieved by MOM Clonidine HCl (Catapres) 0.1 mg PO Q8H [facility] Last Admin: 01/26/17 10:44 Dose: 0.1 mg Enoxaparin Sodium (Lovenox) 40 mg SUB-Q QDAY@1000 YONATHAN Last Admin: 01/26/17 10:45 Dose: 40 mg Hydralazine HCl (Apresoline) 10 mg IV Q4H [facility] Last Admin: 01/26/17 05:52 Dose: Not Given Magnesium Hydroxide (Milk Of Magnesia) 30 ml PO Q4H PRN PRN Reason: Constipation Ondansetron HCl (Zofran) 4 mg IV Q8H PRN PRN Reason: N/V unrelieved by Reglan Last Admin: 01/25/17 22:41 Dose: 4 mg Exam - Constitutional Vitals: Temp Pulse Resp BP Pulse Ox 98.3 F 84 18 156/93 96 01/26/17 08:00 01/26/17 10:44 01/26/17 08:00 01/26/17 10:44 01/26/17 10:00 Results - Labs CBC & Chem 7: 01/25/17 02:44 01/26/17 10:22 Labs: Abnormal lab results 01/26/17 Range/Units 10:22 BUN 28 H (9-20) mg/dL Glucose 221 H (75-100) mg/dL
[2017-01-26] MEDS ORDERED: SODIUM CHLORIDE FLUSH SYRINGE 10 ML IV PRN (11:59)
[2017-01-26] MEDS: MILK OF MAGNESIA PO PRN ×2 (12:27→17:09)
--- NOTE | 2017-01-26 12:47 | Magnetic Resonance Report ---
MRA HEAD WITHOUT CONTRAST HISTORY: CVA. [id number] imaging with MIP reformations of the [place] of [place] is submitted. The arteries appear widely patent and free of hemodynamically significant stenosis or aneurysm dilatation. Both vertebral arteries are identified appearing patent as well. IMPRESSION: Unremarkable MRA head.
--- NOTE | 2017-01-26 19:12 | Progress Note ---
Assessment and Plan Assessment and plan: Hypertensive emergency. Initial BP was 253/171. Patient was started on Labetalol drip which is now off. Started Norvasc and Clonidine oral since BP improved , most recent 143/93. Cardiology following Subacute ischemic stroke. MRI Brain shows 3 foci of infarcts. Aspirin given, cont Aspirin daily. Will do full stroke work up with MRA Brain, Carotid Doppler , Echo. Consult Neurology. If Echo suspicious, may need LING. Shortness of breath due to hypertensive urgency , now resolved. Acute kidney injury due to ATN. Creatinine improving. Cr 1.5 today. Will give iv fluids and repeat BMP in am. Avoid nephrotoxic agents. Medical noncompliance. Patient has not been to a Doctor in more than 10 yrs Dyslipidemia with elevated LDL and trig. Started Zocor 20mg po daily DVT prophylaxis with Lovenox. Full code status History Interval history: shortness of breath resolved, no chest pain Hospitalist Physical - Physical exam Narrative exam: Gen Appearance: Not in acute distress, HEENT: normocephalic, atraumatic Neck: supple, no JVD Lungs: Clear to auscultation, bilaterally, no rales, no wheezing Heart: S1 and S2 regular, no murmurs, rubs or gallop Abdomen: Soft , non tender, non distended, normal bowel sounds Extremity: No edema, No clubbing or cyanosis Neuro : Awake,alert, oriented x 3, moves all extremities - Constitutional Vitals: Temp Pulse Resp BP Pulse Ox 97.6 F 82 18 163/98 96 01/26/17 17:02 01/26/17 18:10 01/26/17 17:02 01/26/17 18:10 01/26/17 17:02 Results - Labs CBC & Chem 7: 01/25/17 02:44 01/26/17 10:22 Labs: Laboratory Last Values WBC 9.2 K/mm3 (4.5-11.0) 01/25/17 02:44 RBC 3.97 M/mm3 (3.65-5.03) 01/25/17 02:44 Hgb 13.5 gm/dl (11.8-15.2) 01/25/17 02:44 Hct 38.9 % (35.5-45.6) 01/25/17 02:44 MCV 98 fl (84-94) H 01/25/17 02:44 MCH 34 pg (28-32) H 01/25/17 02:44 MCHC 35 % (32-34) H 01/25/17 02:44 RDW 13.2 % (13.2-15.2) 01/25/17 02:44 Plt Count 259 K/mm3 (140-440) 01/25/17 02:44 Lymph % (Auto) 20.8 % (13.4-35.0) 01/24/17 18:55 Kendall % (Auto) 5.2 % (0.0-7.3) 01/24/17 18:55 Eos % (Auto) 12.7 % (0.0-4.3) H 01/24/17 18:55 Baso % (Auto) 0.9 % (0.0-1.8) 01/24/17 18:55 Lymph # 2.3 K/mm3 (1.2-5.4) 01/24/17 18:55 Kendall # 0.6 K/mm3 (0.0-0.8) 01/24/17 18:55 Eos # 1.4 K/mm3 (0.0-0.4) H 01/24/17 18:55 Baso # 0.1 K/mm3 (0.0-0.1) 01/24/17 18:55 Add Manual Diff Complete 01/25/17 02:44 Total Counted 100 01/25/17 02:44 Seg Neutrophils % Burner Technician 01/25/17 02:44 Seg Neuts % (Manual) 86.0 % (40.0-70.0) H 01/25/17 02:44 Band Neutrophils % 4.0 % 01/25/17 02:44 Lymphocytes % (Manual) 7.0 % (13.4-35.0) L 01/25/17 02:44 Reactive Lymphs % (Man) 0 % 01/25/17 02:44 Monocytes % (Manual) 3.0 % (0.0-7.3) 01/25/17 02:44 Eosinophils % (Manual) 0 % (0.0-4.3) 01/25/17 02:44 Basophils % (Manual) 0 % (0.0-1.8) 01/25/17 02:44 Metamyelocytes % 0 % 01/25/17 02:44 Myelocytes % 0 % 01/25/17 02:44 Promyelocytes % 0 % 01/25/17 02:44 Blast Cells % 0 % 01/25/17 02:44 Nucleated RBC % Not Reportable 01/25/17 02:44 Seg Neutrophils # 6.6 K/mm3 (1.8-7.7) 01/24/17 18:55 Seg Neutrophils # Man 7.9 K/mm3 (1.8-7.7) H 01/25/17 02:44 Band Neutrophils # 0.4 K/mm3 01/25/17 02:44 Lymphocytes # (Manual) 0.6 K/mm3 (1.2-5.4) L 01/25/17 02:44 Abs React Lymphs (Man) 0.0 K/mm3 01/25/17 02:44 Monocytes # (Manual) 0.3 K/mm3 (0.0-0.8) 01/25/17 02:44 Eosinophils # (Manual) 0.0 K/mm3 (0.0-0.4) 01/25/17 02:44 Basophils # (Manual) 0.0 K/mm3 (0.0-0.1) 01/25/17 02:44 Metamyelocytes # 0.0 K/mm3 01/25/17 02:44 Myelocytes # 0.0 K/mm3 01/25/17 02:44 Promyelocytes # 0.0 K/mm3 01/25/17 02:44 Blast Cells # 0.0 K/mm3 01/25/17 02:44 WBC Morphology Not Reportable 01/25/17 02:44 Hypersegmented Neuts Not Reportable 01/25/17 02:44 Hyposegmented Neuts Not Reportable 01/25/17 02:44 Hypogranular Neuts Not Reportable 01/25/17 02:44 Smudge Cells Not Reportable 01/25/17 02:44 Toxic Granulation Not Reportable 01/25/17 02:44 Toxic Vacuolation Not Reportable 01/25/17 02:44 Dohle Bodies Not Reportable 01/25/17 02:44 Pelger-Huet Anomaly Not Reportable 01/25/17 02:44 Destini Rods Not Reportable 01/25/17 02:44 Platelet Estimate Appears normal 01/25/17 02:44 Clumped Platelets Not Reportable 01/25/17 02:44 Plt Clumps, EDTA Not Reportable 01/25/17 02:44 Large Platelets Not Reportable 01/25/17 02:44 Giant Platelets Not Reportable 01/25/17 02:44 Platelet Satelliting Not Reportable 01/25/17 02:44 Plt Morphology Comment Not Reportable 01/25/17 02:44 RBC Morphology Not Reportable 01/25/17 02:44 Dimorphic RBCs Not Reportable 01/25/17 02:44 Polychromasia Not Reportable 01/25/17 02:44 Hypochromasia Not Reportable 01/25/17 02:44 Poikilocytosis Not Reportable 01/25/17 02:44 Anisocytosis Few 01/25/17 02:44 Microcytosis Not Reportable 01/25/17 02:44 Macrocytosis Not Reportable 01/25/17 02:44 Spherocytes Not Reportable 01/25/17 02:44 Pappenheimer Bodies Not Reportable 01/25/17 02:44 Sickle Cells Not Reportable 01/25/17 02:44 Target Cells Not Reportable 01/25/17 02:44 Tear Drop Cells Not Reportable 01/25/17 02:44 Ovalocytes Not Reportable 01/25/17 02:44 Helmet Cells Not Reportable 01/25/17 02:44 [place] Bodies Not Reportable 01/25/17 02:44 [place] Rings Not Reportable 01/25/17 02:44 [place] Cells Not Reportable 01/25/17 02:44 Bite Cells Not Reportable 01/25/17 02:44 Crenated Cell Not Reportable 01/25/17 02:44 Elliptocytes Not Reportable 01/25/17 02:44 Acanthocytes (Spur) Not Reportable 01/25/17 02:44 Rouleaux Not Reportable 01/25/17 02:44 Hemoglobin C Crystals Not Reportable 01/25/17 02:44 Schistocytes Not Reportable 01/25/17 02:44 Malaria parasites Not Reportable 01/25/17 02:44 Denzel Bodies Not Reportable 01/25/17 02:44 Hem Pathologist Commnt No 01/25/17 02:44 PT 13.2 Sec. (12.2-14.9) 01/24/17 18:55 INR 0.95 (0.87-1.13) 01/24/17 18:55 APTT 26.3 Sec. (24.2-36.6) 01/24/17 18:55 D-Dimer 167.89 ng/mlDDU (0-234) 01/24/17 18:55 Sodium 143 mmol/L (137-145) 01/26/17 10:22 Potassium 3.9 mmol/L (3.6-5.0) 01/26/17 10:22 Chloride 104.0 mmol/L (98-107) 01/26/17 10:22 Carbon Dioxide 24 mmol/L (22-30) 01/26/17 10:22 Anion Gap 19 mmol/L 01/26/17 10:22 BUN 28 mg/dL (9-20) H 01/26/17 10:22 Creatinine 1.5 mg/dL (0.8-1.5) 01/26/17 10:22 Estimated GFR 58 ml/min 01/26/17 10:22 BUN/Creatinine Ratio 19 % 01/26/17 10:22 Glucose 221 mg/dL (75-100) H 01/26/17 10:22 Calcium 9.2 mg/dL (8.4-10.2) 01/26/17 10:22 Total Bilirubin 0.20 mg/dL (0.1-1.2) 01/24/17 18:55 AST 15 units/L (5-40) 01/24/17 18:55 ALT 9 units/L (7-56) 01/24/17 18:55 Alkaline Phosphatase 43 units/L (35-129) 01/24/17 18:55 Total Creatine Kinase 152 units/L (55-170) 01/25/17 02:44 CK-MB (CK-2) 7.5 ng/mL (0.0-4.0) H 01/25/17 02:44 CK-MB (CK-2) Rel Index 4.9 (0-4) H 01/25/17 02:44 Troponin T < 0.010 ng/mL (0.00-0.029) 01/25/17 02:44 NT-Pro-B Natriuret Pep 888.5 pg/mL (0-900) 01/24/17 18:55 Total Protein 7.6 g/dL (6.3-8.2) 01/24/17 18:55 Albumin 4.0 g/dL (3.9-5) 01/24/17 18:55 Albumin/Globulin Ratio 1.1 % 01/24/17 18:55 Triglycerides 260 mg/dL (2-149) H 01/24/17 18:55 Cholesterol 243 mg/dL (50-199) H 01/24/17 18:55 LDL Cholesterol Direct 153 mg/dL (50-130) H 01/24/17 18:55 HDL Cholesterol 38 mg/dL (40-59) L 01/24/17 18:55 Cholesterol/HDL Ratio 6.39 % 01/24/17 18:55
[2017-01-26] MEDS: ZOCOR PO SCH (22:55)
--- NOTE | 2017-01-26 23:11 | Progress Note ---
Assessment and Plan Patient sleeping but easily arousable.No acute respiratory distress.O2 saturation 96% on 2 litres O2.No complaint chest pain or shortness of breath at this time. - Patient Problems (1) Wheezing Current Visit: Yes Status: Acute Plan to address problem: O2 2 litres via nasal canula. Brovanna/Budesonide aerosol treatments q 12 hours. Continue S/C Lovenox. (2) Hypertensive emergency Current Visit: Yes Status: Acute Plan to address problem: Management as per primary care. (3) Renal insufficiency Current Visit: Yes Status: Acute Plan to address problem: Management as per primary care and nephrology. Subjective Date of service: 01/26/17 Interval history: Patient sleeping but easily arousable.No acute respiratory distress.O2 saturation 96% on 2 litres O2.No complaint chest pain or shortness of breath at this time. Objective Vital Signs - 12hr 01/26/17 01/26/17 01/26/17 11:26 14:00 15:29 Temperature 98.3 F Pulse Rate 85 86 87 Respiratory 18 Rate Blood Pressure 146/93 145/82 145/82 O2 Sat by Pulse 96 96 Oximetry 01/26/17 01/26/17 01/26/17 17:02 18:03 18:05 Temperature 97.6 F Pulse Rate 80 81 81 Respiratory 18 Rate Blood Pressure 154/101 163/98 163/98 O2 Sat by Pulse 96 96 Oximetry 01/26/17 01/26/17 01/26/17 18:10 19:58 22:56 Temperature 98.4 F Pulse Rate 82 86 86 Respiratory 18 Rate Blood Pressure 163/98 143/96 143/96 O2 Sat by Pulse 95 Oximetry Constitutional: no acute distress, alert Eyes: non-icteric ENT: oropharynx moist Neck: supple, no lymphadenopathy Ascultation: Bilateral: wheezes (Ocassional wheezing.) Cardiovascular: regular rate and rhythm Gastrointestinal: normoactive bowel sounds, soft, non-tender Integumentary: normal, rash Extremities: no cyanosis, no edema Neurologic: normal mental status, non-focal exam, pupils equal and round, CN II- XII normal Psychiatric: mood appropriate CBC and BMP: 01/25/17 02:44 01/26/17 10:22 ABG, PT/INR, D-dimer: PT/INR, D-dimer PT 13.2 Sec. (12.2-14.9) 01/24/17 18:55 INR 0.95 (0.87-1.13) 01/24/17 18:55 D-Dimer 167.89 ng/mlDDU (0-234) 01/24/17 18:55 Abnormal lab findings: Abnormal Labs 01/24/17 01/25/17 01/25/17 23:35 02:44 02:44 MCV 98 H MCH 34 H MCHC 35 H Seg Neuts % (Manual) 86.0 H Lymphocytes % (Manual) 7.0 L Seg Neutrophils # Man 7.9 H Lymphocytes # (Manual) 0.6 L BUN Creatinine Glucose CK-MB (CK-2) 5.5 H 7.5 H CK-MB (CK-2) Rel Index 4.9 H 01/25/17 01/26/17 02:44 10:22 MCV MCH MCHC Seg Neuts % (Manual) Lymphocytes % (Manual) Seg Neutrophils # Man Lymphocytes # (Manual) BUN 26 H 28 H Creatinine 1.7 H Glucose 283 H 221 H CK-MB (CK-2) CK-MB (CK-2) Rel Index Chest x-ray: report reviewed (No acute cardiopulmonary process.) CT scan - chest: report reviewed (Small right loer lobe atelectasis.)
[2017-01-27] MEDS: APRESOLINE IV SCH ×6 (02:10→21:59)
[2017-01-27] MEDS: CATAPRES PO SCH ×3 (04:10→18:52)
[2017-01-27 08:31] LABS: Anion Gap 15 mmol/L; BUN/Creatinine Ratio 18; Blood Urea Nitrogen 23 mg/dL (9-20); Calcium 9.1 mg/dL (8.4-10.2); Carbon Dioxide 26 mmol/L (22-30); Chloride 106.4 mmol/L (98-107); Glucose 120 mg/dL (75-100); Potassium 4.1 mmol/L (3.6-5.0); Sodium 143 mmol/L (137-145)
[2017-01-27 08:33] LABS: Hematocrit 41.5 % (35.5-45.6); Hemoglobin 14.2 gm/dl (11.8-15.2); Mean Corpuscular HGB Conc 34 % (32-34); Mean Corpuscular Hemoglobin 34 pg (28-32); Mean Corpuscular Volume 98 fl (84-94); Platelet Count 262 K/mm3 (140-440); Red Blood Count 4.22 M/mm3 (3.65-5.03); Red Cell Distribution Width 13.2 % (13.2-15.2); White Blood Count 8.9 K/mm3 (4.5-11.0)
[2017-01-27] MEDS: LOVENOX SUB-Q SCH (09:16)
[2017-01-27] MEDS: ASPIRIN PO SCH (09:16)
[2017-01-27] MEDS: NORVASC PO SCH (09:16)
[2017-01-27] MEDS: COZAAR PO SCH (09:28)
[2017-01-27] MEDS: NACL 0.9% 1000 ML 1,000 ML IV SCH ×2 (09:31→17:29)
--- NOTE | 2017-01-27 11:05 | Progress Note ---
Assessment and Plan - Patient Problems (1) Hypertensive emergency Current Visit: Yes Status: Acute Plan to address problem: Hypertensive emergency suboptimal control. Will add losartan. Renal function normal. (2) Renal insufficiency Current Visit: Yes Status: Acute Plan to address problem: Resolved. Creatinine 1.2. (3) Wheezing Current Visit: Yes Status: Acute Plan to address problem: Unclear underlying etiology pulmonology is being consulted. Patient started on Lizeth and long-acting steroid. (4) CVA (cerebral vascular accident) Current Visit: Yes Status: Acute Qualifiers: CVA mechanism: C Precerebral and cerebral artery: P Laterality of affected vessel: L Plan to address problem: Patient with chronic focal infarcts in both cerebral hemispheres and chronic microvascular ischemia. No evidence of acute CVA. CT abdomen and pelvis show staining with cholelithiasis. At this point we'll discontinue anticoagulant of aspirin. And patient will require aggressive blood pressure control. If losartan control patient's blood pressure and improve in a.m. patient stable for discharge. History Interval history: Patient states he feels somewhat better. Has symptoms of congestion sinuses states he has low-grade fever congestion in throat sinus area. Blood pressure remains suboptimal. Hospitalist Physical - Constitutional Vitals: Temp Pulse Resp BP Pulse Ox 98.3 F 119 H 18 173/85 95 01/27/17 04:33 01/27/17 09:28 01/27/17 04:33 01/27/17 06:49 01/27/17 04:33 General appearance: Present: no acute distress - EENT Eyes: Present: PERRL, EOM intact ENT: hearing intact, clear oral mucosa, dentition normal - Neck Neck: Present: supple, normal ROM - Respiratory Respiratory effort: normal Respiratory: bilateral: CTA - Cardiovascular Rhythm: regular Heart Sounds: Present: S1 & S2 - Extremities Extremities: no ischemia, pulses intact, pulses symmetrical, No edema, normal temperature, normal color Peripheral Pulses: within normal limits - Abdominal General gastrointestinal: soft, non-tender, non-distended, normal bowel sounds - Integumentary Integumentary: Present: clear, warm, dry - Psychiatric Psychiatric: appropriate mood/affect, intact judgment & insight, cooperative - Neurologic Neurologic: CNII-XII intact Results - Labs CBC & Chem 7: 01/27/17 07:58 01/27/17 07:58 Labs: Laboratory Last Values WBC 8.9 K/mm3 (4.5-11.0) 01/27/17 07:58 RBC 4.22 M/mm3 (3.65-5.03) 01/27/17 07:58 Hgb 14.2 gm/dl (11.8-15.2) 01/27/17 07:58 Hct 41.5 % (35.5-45.6) 01/27/17 07:58 MCV 98 fl (84-94) H 01/27/17 07:58 MCH 34 pg (28-32) H 01/27/17 07:58 MCHC 34 % (32-34) 01/27/17 07:58 RDW 13.2 % (13.2-15.2) 01/27/17 07:58 Plt Count 262 K/mm3 (140-440) 01/27/17 07:58 Lymph % (Auto) 20.8 % (13.4-35.0) 01/24/17 18:55 [place] % (Auto) 5.2 % (0.0-7.3) 01/24/17 18:55 Eos % (Auto) 12.7 % (0.0-4.3) H 01/24/17 18:55 Baso % (Auto) 0.9 % (0.0-1.8) 01/24/17 18:55 Lymph # 2.3 K/mm3 (1.2-5.4) 01/24/17 18:55 [place] # 0.6 K/mm3 (0.0-0.8) 01/24/17 18:55 Eos # 1.4 K/mm3 (0.0-0.4) H 01/24/17 18:55 Baso # 0.1 K/mm3 (0.0-0.1) 01/24/17 18:55 Add Manual Diff Complete 01/25/17 02:44 Total Counted 100 01/25/17 02:44 Seg Neutrophils % Automated Teller Manager 01/25/17 02:44 Seg Neuts % (Manual) 86.0 % (40.0-70.0) H 01/25/17 02:44 Band Neutrophils % 4.0 % 01/25/17 02:44 Lymphocytes % (Manual) 7.0 % (13.4-35.0) L 01/25/17 02:44 Reactive Lymphs % (Man) 0 % 01/25/17 02:44 Monocytes % (Manual) 3.0 % (0.0-7.3) 01/25/17 02:44 Eosinophils % (Manual) 0 % (0.0-4.3) 01/25/17 02:44 Basophils % (Manual) 0 % (0.0-1.8) 01/25/17 02:44 Metamyelocytes % 0 % 01/25/17 02:44 Myelocytes % 0 % 01/25/17 02:44 Promyelocytes % 0 % 01/25/17 02:44 Blast Cells % 0 % 01/25/17 02:44 Nucleated RBC % Not Reportable 01/25/17 02:44 Seg Neutrophils # 6.6 K/mm3 (1.8-7.7) 01/24/17 18:55 Seg Neutrophils # Man 7.9 K/mm3 (1.8-7.7) H 01/25/17 02:44 Band Neutrophils # 0.4 K/mm3 01/25/17 02:44 Lymphocytes # (Manual) 0.6 K/mm3 (1.2-5.4) L 01/25/17 02:44 Abs React Lymphs (Man) 0.0 K/mm3 01/25/17 02:44 Monocytes # (Manual) 0.3 K/mm3 (0.0-0.8) 01/25/17 02:44 Eosinophils # (Manual) 0.0 K/mm3 (0.0-0.4) 01/25/17 02:44 Basophils # (Manual) 0.0 K/mm3 (0.0-0.1) 01/25/17 02:44 Metamyelocytes # 0.0 K/mm3 01/25/17 02:44 Myelocytes # 0.0 K/mm3 01/25/17 02:44 Promyelocytes # 0.0 K/mm3 01/25/17 02:44 Blast Cells # 0.0 K/mm3 01/25/17 02:44 WBC Morphology Not Reportable 01/25/17 02:44 Hypersegmented Neuts Not Reportable 01/25/17 02:44 Hyposegmented Neuts Not Reportable 01/25/17 02:44 Hypogranular Neuts Not Reportable 01/25/17 02:44 Smudge Cells Not Reportable 01/25/17 02:44 Toxic Granulation Not Reportable 01/25/17 02:44 Toxic Vacuolation Not Reportable 01/25/17 02:44 Dohle Bodies Not Reportable 01/25/17 02:44 Pelger-Huet Anomaly Not Reportable 01/25/17 02:44 Destini Rods Not Reportable 01/25/17 02:44 Platelet Estimate Appears normal 01/25/17 02:44 Clumped Platelets Not Reportable 01/25/17 02:44 Plt Clumps, EDTA Not Reportable 01/25/17 02:44 Large Platelets Not Reportable 01/25/17 02:44 Giant Platelets Not Reportable 01/25/17 02:44 Platelet Satelliting Not Reportable 01/25/17 02:44 Plt Morphology Comment Not Reportable 01/25/17 02:44 RBC Morphology Not Reportable 01/25/17 02:44 Dimorphic RBCs Not Reportable 01/25/17 02:44 Polychromasia Not Reportable 01/25/17 02:44 Hypochromasia Not Reportable 01/25/17 02:44 Poikilocytosis Not Reportable 01/25/17 02:44 Anisocytosis Few 01/25/17 02:44 Microcytosis Not Reportable 01/25/17 02:44 Macrocytosis Not Reportable 01/25/17 02:44 Spherocytes Not Reportable 01/25/17 02:44 Pappenheimer Bodies Not Reportable 01/25/17 02:44 Sickle Cells Not Reportable 01/25/17 02:44 Target Cells Not Reportable 01/25/17 02:44 Tear Drop Cells Not Reportable 01/25/17 02:44 Ovalocytes Not Reportable 01/25/17 02:44 Helmet Cells Not Reportable 01/25/17 02:44 [place]-Larimore Bodies Not Reportable 01/25/17 02:44 [place] Rings Not Reportable 01/25/17 02:44 Curtis Cells Not Reportable 01/25/17 02:44 Bite Cells Not Reportable 01/25/17 02:44 Crenated Cell Not Reportable 01/25/17 02:44 Elliptocytes Not Reportable 01/25/17 02:44 Acanthocytes (Spur) Not Reportable 01/25/17 02:44 Rouleaux Not Reportable 01/25/17 02:44 Hemoglobin C Crystals Not Reportable 01/25/17 02:44 Schistocytes Not Reportable 01/25/17 02:44 Malaria parasites Not Reportable 01/25/17 02:44 Denzel Bodies Not Reportable 01/25/17 02:44 Hem Pathologist Commnt No 01/25/17 02:44 PT 13.2 Sec. (12.2-14.9) 01/24/17 18:55 INR 0.95 (0.87-1.13) 01/24/17 18:55 APTT 26.3 Sec. (24.2-36.6) 01/24/17 18:55 D-Dimer 167.89 ng/mlDDU (0-234) 01/24/17 18:55 Sodium 143 mmol/L (137-145) 01/27/17 07:58 Potassium 4.1 mmol/L (3.6-5.0) 01/27/17 07:58 Chloride 106.4 mmol/L (98-107) 01/27/17 07:58 Carbon Dioxide 26 mmol/L (22-30) 01/27/17 07:58 Anion Gap 15 mmol/L 01/27/17 07:58 BUN 23 mg/dL (9-20) H 01/27/17 07:58 Creatinine 1.3 mg/dL (0.8-1.5) 01/27/17 07:58 Estimated GFR > 60 ml/min 01/27/17 07:58 BUN/Creatinine Ratio 18 % 01/27/17 07:58 Glucose 120 mg/dL (75-100) H 01/27/17 07:58 Calcium 9.1 mg/dL (8.4-10.2) 01/27/17 07:58 Total Bilirubin 0.20 mg/dL (0.1-1.2) 01/24/17 18:55 AST 15 units/L (5-40) 01/24/17 18:55 ALT 9 units/L (7-56) 01/24/17 18:55 Alkaline Phosphatase 43 units/L (35-129) 01/24/17 18:55 Total Creatine Kinase 152 units/L (55-170) 01/25/17 02:44 CK-MB (CK-2) 7.5 ng/mL (0.0-4.0) H 01/25/17 02:44 CK-MB (CK-2) Rel Index 4.9 (0-4) H 01/25/17 02:44 Troponin T < 0.010 ng/mL (0.00-0.029) 01/25/17 02:44 NT-Pro-B Natriuret Pep 888.5 pg/mL (0-900) 01/24/17 18:55 Total Protein 7.6 g/dL (6.3-8.2) 01/24/17 18:55 Albumin 4.0 g/dL (3.9-5) 01/24/17 18:55 Albumin/Globulin Ratio 1.1 % 01/24/17 18:55 Triglycerides 260 mg/dL (2-149) H 01/24/17 18:55 Cholesterol 243 mg/dL (50-199) H 01/24/17 18:55 LDL Cholesterol Direct 153 mg/dL (50-130) H 01/24/17 18:55 HDL Cholesterol 38 mg/dL (40-59) L 01/24/17 18:55 Cholesterol/HDL Ratio 6.39 % 01/24/17 18:55
[2017-01-27] MEDS: PROVENTIL IH SCH ×2 (14:40→19:27)
[2017-01-27] MEDS: ZITHROMAX PO SCH (17:28)
--- NOTE | 2017-01-27 18:22 | Progress Note ---
Assessment and Plan Patient alert, awake.No acute respiratory distress.O2 saturation 97% on 2 litres O2.No complaint chest pain or shortness of breath at this time. - Patient Problems (1) Wheezing Current Visit: Yes Status: Acute Plan to address problem: O2 2 litres via nasal canula. Brovanna/Budesonide aerosol treatments q 12 hours. Continue S/C Lovenox. (2) Hypertensive emergency Current Visit: Yes Status: Acute Plan to address problem: Management as per primary care. (3) Renal insufficiency Current Visit: Yes Status: Acute Plan to address problem: Management as per primary care and nephrology. Subjective Date of service: 01/27/17 Interval history: Patient alert, awake.No acute respiratory distress.O2 saturation 97% on 2 litres O2.No complaint chest pain or shortness of breath at this time. Objective Vital Signs - 12hr 01/27/17 01/27/17 01/27/17 06:49 09:15 09:16 Temperature Pulse Rate 85 93 H 93 H Pulse Rate [ Anterior Bilateral Throughout] Respiratory Rate [Anterior Bilateral Throughout] Blood Pressure 173/85 Blood Pressure [Left] O2 Sat by Pulse Oximetry 01/27/17 01/27/17 01/27/17 09:28 14:36 14:53 Temperature Pulse Rate 119 H Pulse Rate [ 86 88 Anterior Bilateral Throughout] Respiratory 20 20 Rate [Anterior Bilateral Throughout] Blood Pressure Blood Pressure [Left] O2 Sat by Pulse 97 Oximetry 01/27/17 01/27/17 01/27/17 16:59 17:28 17:30 Temperature 97.2 F L Pulse Rate 93 H 93 H 93 H Pulse Rate [ Anterior Bilateral Throughout] Respiratory Rate [Anterior Bilateral Throughout] Blood Pressure 162/108 162/108 Blood Pressure 168/108 [Left] O2 Sat by Pulse Oximetry Constitutional: no acute distress, alert Eyes: non-icteric ENT: oropharynx moist Neck: supple, no lymphadenopathy Ascultation: Bilateral: wheezes (Ocassional wheezing.) Cardiovascular: regular rate and rhythm Gastrointestinal: normoactive bowel sounds, soft, non-tender Integumentary: normal, rash Extremities: no cyanosis, no edema Neurologic: normal mental status, non-focal exam, pupils equal and round, CN II- XII normal Psychiatric: mood appropriate CBC and BMP: 01/27/17 07:58 01/27/17 07:58 ABG, PT/INR, D-dimer: PT/INR, D-dimer PT 13.2 Sec. (12.2-14.9) 01/24/17 18:55 INR 0.95 (0.87-1.13) 01/24/17 18:55 D-Dimer 167.89 ng/mlDDU (0-234) 01/24/17 18:55 Abnormal lab findings: Abnormal Labs 01/24/17 01/25/17 01/25/17 23:35 02:44 02:44 MCV 98 H MCH 34 H MCHC 35 H Seg Neuts % (Manual) 86.0 H Lymphocytes % (Manual) 7.0 L Seg Neutrophils # Man 7.9 H Lymphocytes # (Manual) 0.6 L BUN Creatinine Glucose CK-MB (CK-2) 5.5 H 7.5 H CK-MB (CK-2) Rel Index 4.9 H 01/25/17 01/26/17 01/27/17 02:44 10:22 07:58 MCV 98 H MCH 34 H MCHC Seg Neuts % (Manual) Lymphocytes % (Manual) Seg Neutrophils # Man Lymphocytes # (Manual) BUN 26 H 28 H Creatinine 1.7 H Glucose 283 H 221 H CK-MB (CK-2) CK-MB (CK-2) Rel Index 01/27/17 07:58 MCV MCH MCHC Seg Neuts % (Manual) Lymphocytes % (Manual) Seg Neutrophils # Man Lymphocytes # (Manual) BUN 23 H Creatinine Glucose 120 H CK-MB (CK-2) CK-MB (CK-2) Rel Index
[2017-01-27] MEDS: BROVANA NEBU IH SCH (19:27)
[2017-01-27] MEDS: PULMICORT IH SCH (19:27)
[2017-01-27] MEDS ORDERED: PROVENTIL IH PRN (19:30)
[2017-01-27] MEDS: ZOCOR PO SCH (22:00)
[2017-01-28] MEDS: APRESOLINE IV SCH ×3 (01:42→12:53)
[2017-01-28] MEDS: CATAPRES PO SCH ×2 (01:57→12:47)
[2017-01-28] MEDS ORDERED: NORVASC PO SCH (06:54)
[2017-01-28 07:46] LABS: Anion Gap 15 mmol/L; BUN/Creatinine Ratio 16; Blood Urea Nitrogen 19 mg/dL (9-20); Calcium 8.9 mg/dL (8.4-10.2); Carbon Dioxide 24 mmol/L (22-30); Chloride 105.3 mmol/L (98-107); Glucose 120 mg/dL (75-100); Potassium 3.9 mmol/L (3.6-5.0); Sodium 140 mmol/L (137-145)
--- NOTE | 2017-01-28 09:02 | Nuclear Medicine Report ---
LUNG SCAN, VENTILATION AND PERFUSION: History: Shortness of breath. Technique: 5mci of Tc99m MAA was infused for the perfusion images. 15mci XE 133 gas was inhaled for the ventilatory images. Correlation is made with a chest x-ray dated 01/28/17. Findings: Inhalation of Xenon gas demonstrates a normal distribution of the activity throughout both lungs. The wash out phases show no focal retention of activity. After injection of Technetium 99m macroaggregated albumin gamma camera imaging of the lungs in multiple projections demonstrates normal pulmonary contours with a homogeneous distribution of activity. No focal areas of perfusion deficiency are identified. IMPRESSION: Low probability for pulmonary embolus.
--- NOTE | 2017-01-28 09:02 | XRay Report ---
AP CHEST: HISTORY: Shortness of breath AP view of the chest demonstrates a normal mediastinal and cardiac contour with clear lungs and normal bony and soft tissue structures. IMPRESSION: Unremarkable AP chest.
[2017-01-28] MEDS: BROVANA NEBU IH SCH (11:11)
[2017-01-28] MEDS: PULMICORT IH SCH (11:11)
--- NOTE | 2017-01-28 11:36 | Discharge Summary ---
Providers - Providers Date of Admission: 01/24/17 20:00 Date of discharge: 01/28/17 Attending physician: DIXON LOUIS MD 01/24/17 20:04 Consult to Physician [CONS] Routine Consulting Provider: BRAULIO VAUGHN Reason For Exam: ICU ADMISSION Place consult to:: Dr. Vaughn Notified:: Via her number Phone number called:: her number Was contact made?: Yes If yes, spoke with:: Dr. Vaughn Time called:: 20:06 01/25/17 15:34 Consult to Physician [CONS] Routine Consulting Provider: LOLI JUNG Reason For Exam: left sided weakness Place consult to:: DR. 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 He complains of a cough but unable to produce any phlegm. He feels very weak, is very diaphoretic when he gets shortness of breath at home. Patient was admitted to the floor and MRI, CXR, VQ scan was done result as stated above. Pulmonary was consulted and patient was treated with breathing treatments, O2 support. Neurology was consulted and recommended statin and aspirin. BP was controlled with BP meds and patient was hemodynamically stable at the time of discharge. Patient didn't have a primary care physician and insurance. I gave him a month supply of the his appropriate medications and discussed with the social services director to give him resources for follow up. Patient's questions and concerns were addressed at the bedside. Disposition: - TO HOME OR SELFCARE Time spent for discharge: 31 minutes - Discharge Diagnoses (1) Hypertensive emergency Status: Acute (2) Renal insufficiency Status: Acute (3) Wheezing Status: Acute (4) CVA (cerebral vascular accident) Status: Acute Qualifiers: CVA mechanism: C Precerebral and cerebral artery: P Laterality of affected vessel: L Core Measure Documentation - Palliative Care Palliative Care/ Comfort Measures: Not Applicable - Core Measures Any of the following diagnoses?: stroke - Stroke Discharge Requirements Statin for LDL = or >70 mg/dl on DC: Yes Anticoag for atrial fib/atrial flutter: Not Applicable Antithrombotic for ischemic stroke: Yes Exam - Constitutional Vitals: Temp Pulse Resp BP Pulse Ox 97.9 F 97 H 20 172/95 95 01/28/17 03:40 01/28/17 11:21 01/28/17 11:21 01/28/17 03:40 01/28/17 03:40 General appearance: Present: no acute distress - EENT Eyes: Present: PERRL, EOM intact ENT: clear oral mucosa - Neck Neck: Present: supple, normal ROM - Respiratory Respiratory effort: normal Respiratory: bilateral: CTA - Cardiovascular Rhythm: regular Heart Sounds: Present: S1 & S2 - Extremities Extremities: no ischemia, No edema Peripheral Pulses: within normal limits - Abdominal General gastrointestinal: Present: soft, non-tender, non-distended - Musculoskeletal Musculoskeletal: strength equal bilaterally - Psychiatric Psychiatric: appropriate mood/affect, memory intact - Neurologic Neurologic: CNII-XII intact, moves all extremities, gait normal - Allied Health Allied health notes reviewed: nursing, RT, social work, case management Plan Activity: no restrictions Weight Bearing Status: Full Weight Bearing Diet: low cholesterol, low salt Follow up with: PRIMARY CARE, [Primary Care Provider] - 3-5 Days Prescriptions: Simvastatin [Zocor TAB] 20 mg PO QHS #30 tablet ALBUTEROL Inhaler [ProAir HFA Inhaler] 2 puff IH QID PRN #1 can PRN Reason: Shortness Of Breath amLODIPine [Norvasc] 10 mg PO QDAY #30 tablet Arformoterol Nebu [Brovana Nebu] 15 mcg IH Q12HRT #30 ml Aspirin [Aspirin TAB] 325 mg PO QDAY #30 tablet Budesonide [Pulmicort Respules] 0.5 mg IH Q12HRT #30 nebu hydrALAZINE [Apresoline TAB] 100 mg PO TID #90 tab Losartan [Cozaar] 100 mg PO QDAY #60 tablet
[2017-01-28] MEDS: ZITHROMAX PO SCH (12:49)
[2017-01-28] MEDS: LOVENOX SUB-Q SCH (12:51)
[2017-01-28] MEDS: COZAAR PO SCH (12:59)
[2017-01-28] MEDS: ASPIRIN PO SCH (13:00)
[2017-01-28 13:02] VITALS: BP 156/90
== END 2017-01-28 15:18 | disposition home or self-care (01) | DRG 64 ==
LOC: ED 18:07 → CC1 20:00 → 4A 01-25 17:53
PROVIDERS: ADMIT Internal Medicine; ATTEND Internal Medicine
PROC: 4A033R1 Measurement of Arterial Saturation, Peripheral, Percutaneous Approach (ICD-10-PCS; principal; 2017-01-28)
DX: I63.9 Cerebral infarction, unspecified (principal); N17.0 Acute kidney failure with tubular necrosis; I16.1 Hypertensive emergency; R68.3 Clubbing of fingers; E78.5 Hyperlipidemia, unspecified; I12.9 Hypertensive chronic kidney disease with stage 1 through stage 4 chronic kidney disease, or unspecified chronic kidney disease; N18.9 Chronic kidney disease, unspecified; Z91.14 Patient's other noncompliance with medication regimen
CPT/HCPCS: 36415; 36600; 70450; 70544; 70551; 71010; 71250; 74176; 78582; 80048; 80053; 80061; 82550; 82553; 83880; 84484; 85007; 85025; 85027; 85379; 85610; 85730; 93005; 93010; 93306; 93880; 94640; 94760; 96365; 96366; 96367; 96372; 96375; A9540; A9558; J0360; J1650; J2405; J2930; J3475; J7030; J7050